=== PATIENT | male | born 1990 | race Caucasian/White ===

== ENCOUNTER 2024-10-12 00:13 | Outpatient (CLI) | payer OTHER, SELFPAY ==
--- NOTE | 2024-10-12 09:28 | DI.RAD_ITS ---
Exam(s) XR LUMBAR SPINE COMPLETE EXAM: XR LUMBAR SPINE COMPLETE CLINICAL HISTORY: ACUTE RT SIDED LOW BACK PAIN W/O SCIATICA, LOW BACK PAIN, M54.50. TECHNIQUE: 2D digital imaging was performed. COMPARISON: No exams were available for comparison FINDINGS: Five views No evidence of fracture, listhesis, nor pars interarticularis defects. All of the disc spaces exhibi t normal height. Facet joints appear un remarkable as do the sacroiliac joints. Bone density normal. No osseous lesions. Transverse process is are intact. IMPRESSION: No significant radiograph findings in the lumbosacral spinal column. DATA REPOSITORY: RADIATION DOSE DELIVERED:
== END 2024-10-12 00:33 ==
PROVIDERS: PCP Nurse Practitioner Family; Visit Provider Nurse Practitioner Family
DX: M54.50 Low back pain, unspecified (principal)
CPT/HCPCS: 72110

== ENCOUNTER 2024-10-12 00:29 | Outpatient (CLI) | payer OTHER, MEDICAID, SELFPAY ==
--- NOTE | 2024-10-12 09:28 | DI.RAD_ITS ---
Exam(s) XR THORACIC SPINE COMPLETE EXAM: XR THORACIC SPINE COMPLETE CLINICAL HISTORY: ACUTE RT SIDED BACK PAIN,M54.50. TECHNIQUE: 2D digital imaging was performed. COMPARISON: No exams were available for comparison FINDINGS: 3 views No evidence of compression fracture or listhesis. No scoliosis. No abnormal widening of the paraspi nal lines. No osseous lesions evident. No obvious disc space narrowing. IMPRESSION: No significant radiograph findings on these views of the thoracic spinal column. DATA REPOSITORY: RADIATION DOSE DELIVERED:
--- NOTE | 2024-10-12 09:28 | DI.RAD_ITS ---
Exam(s) XR FOOT LT COMPLETE EXAM: XR FOOT LT COMPLETE CLINICAL HISTORY: ACUTE PAIN LT FOOT, M79.672. TECHNIQUE: 2D digital imaging was performed. COMPARISON: DX MO FOOT LEFT 3V MIN from 01/22/2020 FINDINGS: 3 views Again noted is fixation hardware in the lateral aspect of the calcaneus secured by multiple screws, s imilar to prior images of January 2020. There is also an independent screw in the anterior process of the calcaneus again noted. There is no hardware loosening nor hardware migration. No further height loss of the calcaneus. The subtalar joint appears un remarkable as does the talonavicular joint. Midfoot articulations appear unremarkable as do the phalanges and metatarsophalangeal joints. IMPRESSION: Stable appearance of calcaneal hardware when compared to January 2020. No acute osseous findings in t he foot. DATA REPOSITORY: RADIATION DOSE DELIVERED:
== END 2024-10-12 00:49 ==
PROVIDERS: PCP Nurse Practitioner Family; Visit Provider Nurse Practitioner Family
DX: M79.672 Pain in left foot (principal); M54.50 Low back pain, unspecified
CPT/HCPCS: 72072; 73630